=== PATIENT | male | born 1940 | race Caucasian/White ===

== ENCOUNTER 2020-04-20 05:03 | Emergency (ER) | payer MEDICARE ==
[2020-04-20 07:33] LABS: #Basophils 0.1 thou/uL (0.0-0.2); #Eosinphils 0.4 thou/uL (0.0-0.7); #Lymphocytes 1.1 thou/uL (1.20-3.40); #Monocytes 0.5 thou/uL (0.11-0.59); %Basophils 1.1 % (0.0-1.0); %Eosinophils 5.9 % (0.0-10.0); %Lymphocytes 18.8 % (21.0-51.0); %Monocytes 7.8 % (0.0-10.0); %Neutrophils 66.4 % (42.0-75.0); Hemoglobin 11.7 g/dL (14.0-18.0); Mean Corpuscular HGB CONC 31.6 g/dL (32.0-36.0); Mean Corpuscular Hemoglobin 25.8 pg (27.0-31.0); Mean Corpuscular Volume 81.5 fL (78.0-98.0); Mean Platelet Volume 8.1 fL (7.4-10.4); Platelet Count 388 thou/uL (130-400); RBC Distribution Width 20.1 % (11.5-14.5); Red Blood Cell (RBC) Count 4.55 mill/uL (4.70-6.10); White Blood Cell (WBC) Count 6.1 thou/uL (4.8-10.8)
[2020-04-20 08:04] LABS: ALT (SGPT) 31 U/L (8-55); AST (SGOT) 41 U/L (5-34); Albumin 4.7 g/dL (3.4-4.8); Alkaline Phosphatase 79 U/L (40-110); Anion Gap 20 mmol/L (10-20); BUN (Urea Nitrogen) 16 mg/dL (8.4-25.7); Bilirubin, Total 0.3 mg/dL (0.2-1.2); Calc. Creatinine Clearance 0 mL/min (70-130); Calcium 10.4 mg/dL (7.8-10.44); Carbon Dioxide 20 mmol/L (23-31); Chloride 93 mmol/L (98-107); Estimated GFR-MDRD 62; Globulin 3.6 g/dL (2.4-3.5); Glucose 86 mg/dL (83-110); Potassium 4.2 mmol/L (3.5-5.1); Protein, Total 8.3 g/dL (5.8-8.1); Sodium 129 mmol/L (136-145)
--- NOTE | 2020-04-20 08:35 | CT ---
PRELIMINARY REPORT/[facility]/AFTER HOURS PROCEDURE Receipt of this report by the clinical staff was confirmed with Merry Rosales MD by Constantino Ross on Apr 20, 2020 05:44:00 CDT. Addendum electronically signed by Jocelyn Ross on April 20, 2020 5:44:31 AM CDT CTA HEAD AND NECK: HISTORY: Patient stroke with right-sided weakness. TECHNIQUE: Computerized tomographic angiography of the head and neck was performed after the IV injection of iod inated nonionic contrast. Multiplanar and 3-D reformations with maximum intensity and surface-shaded reformations . NOTE: The degree of internal carotid artery stenosis is reported using NASCET criteria. COMPARISONS: None. FINDINGS: VISUALIZED CHEST AND AORTA: Trace atherosclerosis visualized aortic arch with no other abnormality. NECK: Right Carotid: Mild atherosclerosis proximal internal carotid artery without narrowing. Vertebral: Mild atherosclerosis at the origin and scattered along the course through the cervical spi ne without narrowing. Left carotid: Mild to moderate atherosclerosis proximal internal carotid artery without narrowing. Vertebral: Scattered mild atherosclerosis without narrowing. Nonvascular soft tissues: Unremarkable. HEAD Right carotid siphon: Moderate atherosclerosis without significant narrowing. Anterior cerebral: Unremarkable. Middle cerebral: Unremarkable. Posterior cerebral: Unremarkable. Left carotid siphon: Moderate atherosclerosis without significant narrowing. Anterior cerebral: Unremarkable. Middle cerebral: Unremarkable. Posterior cerebral: Unremarkable. Vertebral and Basilar arteries: Unremarkable. Aneurysms and AVMs: None. Dural Sinuses: Unremarkable. Nonvascular brain: No abnormal enhancement. IMPRESSION: 1. Atherosclerosis is described above with no significant narrowing. 2. No vascular occlusive disease. 3. No other significant abnormality identified. ELECTRONICALLY SIGNED BY: Marcin Davey MD Apr 20, 2020 5:41:33 AM CDT This report is intended for review by the ordering physician only, in accordance of law. If you recei ve this report in error, please call [facility] at [phone]. FINAL REPORT FINDINGS: CTA HEAD: Anterior cerebral arteries, middle cerebral arteries and posterior cerebral arteries appear patent and symmetric. No cerebral artery stenosis or occlusion identified. CTA NECK: Atherosclerotic change at both carotid bulbs. No evidence of hemodynamically significant st enosis. I am in agreement with the preliminary report. CODE QA POS: HUNTER
--- NOTE | 2020-04-20 08:45 | CT ---
PRELIMINARY REPORT/[facility]/AFTER HOURS PROCEDURE This report was discussed with Merry Rosales MD by Lynne Hall on Apr 20, 2020 05:17:00 CDT. Addendum electronically signed by Lynne Hall on April 20, 2020 5:17:[address] HEAD WITHOUT CONTRAST: HISTORY: Stroke and aphasia with right-sided weakness. TECHNIQUE: Axial images were performed without the administration of IV contrast with or without multiplanar ref ormations. COMPARISON: None. FINDINGS: Brain shows no mass, hemorrhage or acute stroke. Mild to moderate periventricular old microischemic changes. Mild diffuse cerebral and cerebellar atr ophy. Ventricles are normal size for patient's age. No acute skull or scalp abnormality. Visualized sinuses and mastoids are clear. IMPRESSION: 1. No acute intracranial abnormality. 2. Senescent changes. ELECTRONICALLY SIGNED BY: Marcin Davey MD Apr 20, 2020 5:15:00 AM CDT This report is intended for review by the ordering physician only, in accordance of law. If you recei ve this report in error, please call [facility] at [phone]. FINAL REPORT CT HEAD WITHOUT CONTRAST: FINDINGS: There is no evidence of acute infarct. No evidence of mass or hemorrhage. There are chronic ischemic changes. I am in agreement with the preliminary report. CODE QA POS: HUNTER
[2020-04-20] MEDS ORDERED: Iopamidol 370 76% 100 ML VIAL ONE (14:14)
[2020-04-20] MEDS ORDERED: Iopamidol-370 76% 500 ML 1 ML ONE (14:15)
--- NOTE | 2020-04-21 11:55 | EKG ---
Test Reason : STROKE Blood Pressure : / mmHG Vent. Rate : 076 BPM Atrial Rate : 076 BPM P-R Int : 164 ms QRS Dur : 086 ms QT Int : 366 ms P-R-T Axes : 046 031 044 degrees QTc Int : 411 ms Normal sinus rhythm Inferior infarct , age undetermined Abnormal ECG Confirmed by AMELIE HARDIN ([id number]), publications editor ILIA MON ([id number]) on 04/21/2020 11:54:46 AM Referred By: Confirmed By:AMELIE HARDIN
== END 2020-04-20 08:54 | disposition home or self-care (01) ==
LOC: ERS 05:03
DX: E11.649 Type 2 diabetes mellitus with hypoglycemia without coma (principal); I10 Essential (primary) hypertension; E78.00 Pure hypercholesterolemia, unspecified; Z87.891 Personal history of nicotine dependence; Z79.82 Long term (current) use of aspirin; Z79.4 Long term (current) use of insulin; Z79.899 Other long term (current) drug therapy
CPT/HCPCS: 36415; 36416; 70450; 70496; 70498; 80053; 84484; 85025; 93005; Q9967